=== PATIENT | male | born 1965 | race Native Hawaiian/Other Pacific Islander ===

== ENCOUNTER 2022-03-21 18:56 | Emergency (ER) | payer OTHER ==
[~2022-03-21] VITALS: Ht 180.3 cm; Wt 74.8 kg
[2022-03-21 20:00] VITALS: BP 160/95; TEMP 98.5
== END 2022-03-21 20:05 | disposition home or self-care (01) ==
LOC: ED 18:56
DX: N45.1 Epididymitis (principal); F15.10 Other stimulant abuse, uncomplicated
CPT/HCPCS: 81002; 99282